=== PATIENT | male | born 1940 | race Caucasian/White ===

== ENCOUNTER → 2016-11-21 | Outpatient (CLI) | payer OTHER ==
[~2016-11-21] VITALS: Ht 180.3 cm; Wt 100.9 kg
[~2016-11-21] MED LIST: ACYCLOVIR 400400 MG PO; ALLERGY10 M1 PO; COZAAR 25 MG TA25 M1 PO; IBUPROFEN 200200 M1 PO; LEVOTHYROXINE137 MCG PO; MEDROL DOSPAK21 TA1 PO; PERCOCET PO; STOOL SOFT50 MG/5 ML PO; VITAMIN D3400 UNIT PO; VITAMINC500 PO; ZOCOR20 MG PO; ZYLOPRIM300 MG PO
--- NOTE | ~2016-11-21 | HPC ---
[facility] [place] [address] PAIN MANAGEMENT CONSULTATION Name: CLIFFORD OTT Room #: REG Aliza Marmolejo#: [id number] Admission: 11/21/16 Attend Phys: Deni Guillen DO Discharge: Date of : 42 Report #: [id number] THIS REPORT FOR: //name// CC: Derrek Guillen HISTORY OF PRESENT ILLNESS: The patient is a 76-year-old gentleman seen in consultation at the request of Dr. Diego Spears for evaluation of pain, acute onset right low back. The patient notes pain started when he was starting his chainsaw and doing some wood cutting work. This was 4-6 weeks ago. Pain became problematic to the point that he sought followup care at the ER. He had tried chiropractic manipulation, muscle relaxants [id number] anti-inflammatory medications. In the ER, he was given a Medrol Dosepak and a short course of Percocet. He notes pain continues in the right low back, radiating to the right hip. Denies specific paresthesia, lower extremity weakness, bowel or bladder continence changes or saddle anesthesia. He does rate pain quite high, anywhere from 8-10 on a VAS; sharp, stabbing periodic pain exacerbated with any and all movement. He does get some relief with ice and being recumbent. REVIEW OF SYSTEMS: Complete review of systems attached to chart, was gone over with the patient. He is . He does not smoke or drink alcohol to excess. History of hypertension, treated with losartan; levothyroxine for hypothyroidism; dyslipidemia for which he takes simvastatin. He does have a history of multiple myeloma. He takes acyclovir and Velcade injections biweekly. Allopurinol for gout. The patient does note that he bruises easily and does have some difficulty with clotting secondary to low platelet counts. 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 He has been off work the past 2 weeks. Pain impact score averages about 6.2. PHYSICAL EXAMINATION: VITAL SIGNS: Reveals a 5 feet 11 inches, 223 pounds gentleman in moderate distress. BMI is 31 kilograms per meter squared. Blood pressure is 122/81, pulse is 81, respirations 16. NEUROLOGIC: Cranial nerves 2-12 are grossly intact. HEENT: Pupils equal, reactive to light and accommodation. Extraocular muscles are intact. NECK: Cervical range of motion is full. Thyroid is modestly enlarged. HEART: Regular and rhythmical without murmur. LUNGS: Clear to auscultation. EXTREMITIES: Upper extremity strength is generally preserved. Rises from chair using armrest, moderately antalgic gait. Lumbar flexion is good to 90 degrees. He is not able to walk on his left toe. He does have discrete tenderness over the right low back. Patellar and Achilles reflexes are generally symmetric. Straight leg raise is negative. Lower extremity strength is about 4/[address] [address] PAIN MANAGEMENT CONSULTATION Name: TRUCLIFFORD Francheska Room #: REG BRITTANY Marmolejo#: [id number] Admission: 11/21/16 Attend Phys: Deni Guillen, Discharge: Date of : 42 Report #: [id number] muscle groups tested. Positive Hector test on the left with pain exacerbated with rotation and side bending. DIAGNOSTIC STUDIES: There are no diagnostic studies available for evaluation at this time. ASSESSMENT: Symptomatic lumbosacral spondylosis, right sacroiliac mediated pain in the patient with history of multiple myelosis. RECOMMENDATIONS: 1. Right SI joint injection under fluoroscopy today. 2. Core strengthening exercises given to the patient. 3. Follow up in 3 weeks for reevaluation. If not significant relief, we will need an MRI of the lumbar spine to rule out any other treatable pathology. Thank you for allowing me to participate in the patient's care. I will keep you abreast of his progress. PROCEDURE NOTE: Right SI joint injection under fluoroscopy. PROCEDURE: After written informed consent was obtained, the patient was taken to the fluoroscopy suite and placed in prone position. After sterile prep and drape, skin wheal was raised. A 22-gauge spinal needle was inserted into the inferior aspect of the right SI joint. Negative aspiration was accomplished. 1 mL of Omnipaque was injected, which showed spread within the joints. This was followed with 40 mg triamcinolone plus 1 mL of 0.5% preservative-free bupivacaine. Needle was removed. The area was cleansed, Band-Aids applied. The patient monitored for an appropriate period of time, discharged in good and stable. By: 1214 1615 Deni Guillen DO /nt
[2016-11-21 09:40] VITALS: BP 122/81
== END | disposition home or self-care (01) ==
LOC: PAIN 07:18
DX: M53.3 Sacrococcygeal disorders, not elsewhere classified (principal); M47.817 Spondylosis without myelopathy or radiculopathy, lumbosacral region; D72.828 Other elevated white blood cell count; Z68.31 Body mass index [BMI] 31.0-31.9, adult; I10 Essential (primary) hypertension; E03.9 Hypothyroidism, unspecified; E78.5 Hyperlipidemia, unspecified; Z79.899 Other long term (current) drug therapy

== ENCOUNTER → 2016-12-11 | Outpatient (CLI) | payer OTHER ==
[~2016-12-11] VITALS: Ht 180.3 cm; Wt 94.3 kg
[~2016-12-11] MED LIST changes: +NAPROXEN375 MG PO; +NORCO 5-325 TA1 EACH PO
--- NOTE | ~2016-12-11 | HPC ---
[facility] [address] [place] [address] PAIN MANAGEMENT CONSULTATION Name: CLIFFORD OTT Room #: [facility] [id number] Admission: 12/11/16 Attend Phys: Deni Guillen DO Discharge: Date of : 42 Report #: [id number] THIS REPORT FOR: //name// CC: Derrek Guillen HISTORY OF PRESENT ILLNESS: The patient is a 76-year-old gentleman seen in consultation on 11/21/2016 for axial back and low back pain. Diagnosed with symptomatic lumbosacral spondylosis, right SI mediated pain, history of multiple myelosis. He was given a right SI joint injection at that time, referred to physical therapy. He returns to pain clinic today noting that the right SI joint injection did afford good relief, 75% relief for only about 3 days, pain has recurred. He did not start physical therapy. He is struggling little bit with constipation chronically. Notes pain remains problematic. DIAGNOSTIC STUDIES: Ordered by his oncologist, pelvis MRI notes prostatomegaly and lumbar spondylosis. Bone osseous study notes thoracic spine slight scoliosis, lumbar spine shows hypertrophic degenerative processes with facet degenerative changes throughout the lumbar spine. There is some arthritis in the right knee and left knee as well. The patient rates his pain at 10 on VAS, primarily across the low back. Lower extremity strength is symmetric. Straight leg raise is negative. Positive LACEY test bilaterally along with some pain in the L4-L5 and L5-S1 facets exacerbated with rotation and side bending. ASSESSMENT: Lumbosacral spondylosis, lumbar spondylosis, bilateral sacroiliac joint dysfunction in a gentleman with multiple myeloma. RECOMMENDATION: 1. Again, I have taken the liberty of writing for referral to physical therapy for core strengthening. 2. SI joint injection under fluoroscopy today. 3. Hydrocodone 5/325 one tablet 2-3 times a day, limit 75 tablets for 30 days for acute pain; again encouraged MiraLax in the morning, Colace at night, copious fluids during the day. Naprosyn 375 b.i.d. Discontinue byoj-rvt-anncuzs ibuprofen. 4. Follow up in 4 weeks for reevaluation, consideration for L4-L5 and L5-S1 facet joint injections if indicated clinically. ASSESSMENT: Symptomatic bilateral sacroiliac joint dysfunction by clinical exam. PROCEDURE: Bilateral SI joint injections under fluoroscopy. PROCEDURE NOTE: After written and informed consent was obtained including risk [address] [address] PAIN MANAGEMENT CONSULTATION Name: CLIFFORD OTT [id number] Admission: 12/11/16 Attend Phys: Dein Guillen DO Discharge: Date of : 42 Report #: [id number] of infection, nerve trauma, increased pain and weakness, the patient wishes to proceed. The patient was taken to the fluoroscopy suite, placed in the prone position. The sacroiliac joint was visualized using the C-arm, turned in an oblique fashion to align the joint. The skin overlying the area was cleansed with ChloraPrep. Skin wheal with Xylocaine was raised. A 22 gauge spinal needle was inserted into the inferior aspect of the joint. A low volume extension tubing was then attached to the needle after the stylet was removed. Negative aspiration was accomplished. A 1 mL of Omnipaque was injected which showed spread within the SI joint. 40 mg triamcinolone plus 2 mL of 0.5% preservative-free bupivacaine was injected into the joint. Needle was removed. Attention was then turned to the contralateral joint which was treated in an identical fashion. After both needles were removed the prep was washed off. Two Band-Aids were applied over the puncture sites. The patient was allowed to ambulate to the recovery room, monitored for an appropriate period of time, discharged in good and stable condition. <ELECTRONICALLY SIGNED> By: Deni Guillen DO 12/12/16 0654 [id number] Deni Guillen DO /nt
[2016-12-11 11:09] VITALS: BP 128/92
== END | disposition home or self-care (01) ==
LOC: PAIN 07:45
DX: M53.3 Sacrococcygeal disorders, not elsewhere classified (principal); M47.816 Spondylosis without myelopathy or radiculopathy, lumbar region; M47.817 Spondylosis without myelopathy or radiculopathy, lumbosacral region; C90.00 Multiple myeloma not having achieved remission

== ENCOUNTER 2017-01-12 06:51 | Inpatient (IN) | payer OTHER ==
[~2017-01-12] VITALS: Ht 177.8 cm; Wt 81.6 kg
--- NOTE | ~2017-01-12 | HC ---
[facility] [place] [address] CONSULTATION Name: CLIFFORD OTT Room #: 448-P [facility] IN M.R.#: [id number] Admission: 01/12/17 Attend Phys: Deni Guillen DO Discharge: Date of : 42 Report #: [id number] THIS REPORT FOR: //name// CC: Derrek Guillen TYPE OF REPORT: Infectious diseases consultation. REASON FOR CONSULTATION: I was asked to evaluate concerning suspected diskitis and vertebral osteomyelitis. HISTORY OF PRESENT ILLNESS: The patient is a 76-year old with a history of multiple myeloma in the past 3 years. He has undergone stem cell transplant with maintenance Velcade biweekly. About 6 weeks ago after working with a chainsaw developed low back pain. This has progressed. He reports occasional chill or sweats but no documented fever. There was concern about myeloma, but bone scan was clear. MRI scan, however, showed evidence of fluid and L1-L2 disk space with endplate destruction and some extension bilaterally into the psoas. Had very small epidural fluid collection as well. He underwent biopsy today. He was given a dose of vancomycin post-procedure. The patient has had no cough, sputum, nausea, vomiting or diarrhea. He does have a history of prostate cancer and has a neurogenic bladder and requires self catheterization twice a day, which is a longstanding issue. No recent urinary tract infections. The patient does not recall the last antibiotic course he has been on. No other skin or lymph issues. Neurologic has been unremarkable other than noted above. ALLERGIES: None known. MEDICATIONS: As noted on his MAR including acyclovir, docusate sodium, vitamin D, Synthroid, losartan, allopurinol, simvastatin and Velcade. PAST MEDICAL HISTORY: Tonsillectomy, thyroid surgery, tumor in his right leg in the early 1950s, multiple myeloma, prostate cancer status post radiation, self catheterization program, BPH, thyroidectomy and hyperlipidemia. FAMILY HISTORY: Cancer and hypertension. SOCIAL HISTORY: Nonsmoker. No significant alcohol intake. PHYSICAL EXAMINATION: VITAL SIGNS: He is afebrile, hemodynamically stable. GENERAL: He is alert and cooperative and pleasant, in no acute distress. HEENT: Unremarkable. NECK: Supple. [facility] [address] [place] [address] CONSULTATION Name: CLIFFORD OTT Room #: 448-P [facility] IN [facility].#: [id number] Admission: 01/12/17 Attend Phys: Deni Guillen DO Discharge: Date of : 42 Report #: [id number] LUNGS: Clear. HEART: Regular. ABDOMEN: Soft and nontender. MUSCULOSKELETAL: He had a back lesion with some swelling in the upper lumbar region. This was exquisitely tender in this area. Strength in the lower extremities was unremarkable. LABORATORY STUDIES: Hemoglobin 8.8; WBC 2.5 with 85% segs; 1% band and platelet count was 52,000. Sodium 136, potassium 4.0, bicarbonate 27 and creatinine 0.9 and alk phos 117. Blood cultures and biopsy cultures are pending. RADIOLOGICAL DATA: MRI scan as noted above. IMPRESSION: A 76-year old with ongoing multiple myeloma, on maintenance treatment and presents now with a fluid collection, L1-L2 disk space with suspecting vertebral osteomyelitis. There was diffuse increased marrow signal throughout the vertebral bodies. There was extension of this process into the adjacent psoas muscles with a small epidural component. This would most likely be bacterial in origin due to the fact that the patient does self catheterization program, which predisposes him to contamination of the bladder and potentially upper urinary tract. He is immunosuppressed. He has thrombocytopenia. Duration of which is not yet clear whether this is a new finding or not. RECOMMENDATION: Blood cultures and aspirate culture as well as pathologic specimen evaluation. We will hold his antibiotics until we have a more clear evidence of the type of infection that we are dealing with. If no growth from this aspiration, we would pursue further biopsy. If he should become unstable, we will then go with empiric broad-spectrum coverage. Duration of this antibiotic treatment will be prolonged. This was discussed with the patient at the bedside. <ELECTRONICALLY SIGNED> By: Matthew Adam MD 01/13/17 1513 [id number] Matthew Adam MD /nt
--- NOTE | ~2017-01-12 | HPC ---
[facility] [place] [address] PAIN MANAGEMENT CONSULTATION Name: CLIFFORD OTT Room #: 448-P [facility] IN ..#: [id number] Admission: 01/12/17 Attend Phys: Deni Guillen DO Discharge: 01/15/17 Date of : 42 Report #: [id number] THIS REPORT FOR: //name// CC: Derrek Guillen DATE OF SERVICE: 01/12/2017 The patient is a 76-year-old gentleman, prior seen in the pain clinic 12/11/2016. The patient was diagnosed with axial back pain, component of lumbosacral spondylosis. The patient was given bilateral SI joint injections 12/11/2016 with transient improvement of pain. He returns to pain clinic today complaining of significant axial back pain. Notes his pain is a 10 on VAS. Pain is in the mid back, exacerbated with standing and moving. He notes no relief of the SI joint injections that he can recall. Examination today does show pain a little different more in the lumbar area. Pain seems to be exacerbated with standing, walking and bending. He did present to the ER on 01/05/2017 complaining of right hip pain. Pain today again is primarily mid back. PHYSICAL EXAMINATION: Shows a 76-year-old gentleman, BMI is 25.7 kilograms per meter squared. Vital signs show blood pressure 102/71, pulse 94, respirations are 14, room air oxygen saturation 100%. Again, BMI is 25.7 kilograms per meter squared. He has a very difficulty with any and all movement. Very significant midline back pain over the posterior spinous processes in the lumbar spine. I did order an x-ray of the lumbar spine, which did note age indeterminate compression fracture at the superior endplate of L2 With tenderness in this area we referred to MRI for consideration for interventional therapy. He was seen by Dr. Tevin Naidu, the MRI noted bulging disk at multiple levels. Small left herniated disk at L5-S1 with bilateral neural foraminal narrowing, more significant was fluid is in the L1-L2 disk space with destruction of superior endplate invasion of the inferior to the superior endplate of L2 and the inferior endplate of L1. A very small epidural abscess that was present at this level. He has some extension of the psoas muscle. After discussion with Dr. Naidu, he moved forward with disk space, aspiration. I suggested that he speak to the hospitalist to have the patient admitted for pain control and seen by Infectious Disease. The patient was seen in the clinic for approximately 25 minutes. Ultimately, both before and after the x-rays before ultimately being referred back to [place]ology [place] [address] PAIN MANAGEMENT CONSULTATION Name: TRUCLIFFORD Francheska Room #: 448-P [facility] IN M.R.#: [id number] Admission: 01/12/17 Attend Phys: Deni Guillen DO Discharge: 01/15/17 Date of : 42 Report #: [id number] Uses naproxen and hydrocodone at home, I did provide him a prescription for 75 hydrocodone 12/11/2016. Depending on outcome of aspirate from the apparent diskitis and acute pain management by the hospitalist. We will consider renewing p.o. medications on an as needed basis. Thanks for allowing me to participate in the patient's care. He was discharged from our care back to Radiology for an MRI after greater than 25 minutes spent [id number] contact and consultation. <ELECTRONICALLY SIGNED> By: Deni Guillen DO 01/19/17 0759 [id number] [id number] Deni Guillen DO /nt
--- NOTE | ~2017-01-12 | HC ---
[facility] [address] CONSULTATION Name: CLIFFORD OTT Room #: 448-P [facility] IN ..#: [id number] Admission: 01/12/17 Attend Phys: Deni Guillen DO Discharge: 01/15/17 Date of : 42 Report #: [id number] THIS REPORT FOR: //name// CC: Derrek Guillen DATE OF SERVICE: 01/14/2017 HISTORY OF PRESENT ILLNESS: The patient is a 76-year-old white male who admitted from the Pain Clinic with L1-L2 diskitis. The patient has a history of multiple myeloma for the past 3 years and has undergone a stem cell transplant with maintenance Velcade biweekly. Approximately 6 weeks ago, he was working with a chainsaw and developed some low back pain. The pain has progressed. MRI showed evidence of fluid and L1-L2 disk space involvement with endplate destruction and some extension bilaterally into the psoas. He has a very small epidural fluid collection as well. He has undergone biopsy. He has considerable pain with any movements. He has been receiving IV fentanyl push. We are seeing him in rehabilitation medicine consultation. PAST MEDICAL HISTORY: As noted above. He has a history of a tumor in his right leg in the 1950s, the multiple myeloma as noted above, history of prostate cancer for which he underwent radiation approximately 5 years ago and has problems with inadequate emptying and caths himself typically twice a day, although he does have some intermittent voiding in between. He has a history of BPH, thyroidectomy, hyperlipidemia. FAMILY HISTORY: Includes cancer and hypertension. ALLERGIES: No known drug allergies. SOCIAL HISTORY: Lives with his . They live in a house. He can go in on the ground level and stay in the family room where he sleeps in the recliner and there is a bathroom on that level. He needs to go up 6 steps to get to the next level, however, where there is a bedroom. works part-time. The patient is retired. REVIEW OF SYSTEMS: As noted above. He self caths premorbidly. No complaints of chest pain, shortness of breath, abdominal discomfort. Has considerable pain in his back with any limited movement. PHYSICAL EXAMINATION: GENERAL: A 76-year-old white male in no obvious distress. VITAL SIGNS: Last recorded temperature 98, pulse 82, respirations 19, blood pressure 118/61. HEENT: Facies are symmetric. [address] [address] CONSULTATION Name: CLIFFORD OTT Room #: 448-P [facility] IN ..#: [id number] Admission: 01/12/17 Attend Phys: Deni Guillen DO Discharge: 01/15/17 Date of : 42 Report #: [id number] NEUROLOGIC: Functional range of motion of both upper extremities with good strength, grade 5-/5. His lower extremities, he has some discomfort with bilateral hip flexion which was difficult to grade. It is at least a grade 3+/5, but again was difficult to grade with the discomfort. Bilateral knee extension is a grade 4- knee flexion is 4-, ankle dorsiflexion is a 4-4+ bilaterally. Again, some of the proximal muscle movement was a little bit limited and testing due to discomfort. There was no clonus. DTRs were decreased. Sensory examination appeared intact to simultaneous stimulation both lower extremities as well as over his scrotum. Sensation appeared slightly decreased right large toe to proprioception. He has been able to roll supine with contact guard assistance. He has pain with any attempts with limited sitting. ASSESSMENT: A 76-year-old white male with the following problem list: 1. 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 2. History of multiple myeloma with premorbid stem cell transplant. 3. Premorbid urinary retention for which he intermittently self-catheterized post-radiation for prostate cancer. 4. Pain issues, currently on IV fentanyl as well as some oral hydrocodone. 5. Constipation. 6. Deep venous thrombosis prophylaxis, Lovenox. Sequential compression devices. PLAN: Discussed with Dr. Adam in Infectious Disease as well as case management. Would recommend Neurosurgery involvement to help with transition from immobilization to activity post-bracing. My impression is that he would need a rigid TLSO brace and that his activity, even in the brace should include ambulation only if he has neither pain nor radiographic signs of instability. In my impression Neurosurgery should be involved as far as helping to monitor this increase in activity level once he is fitted with the brace. Rather than order a TLSO at this point in time, I discussed transferring the patient to another facility with Neurosurgery involvement to further monitor and assist in this regard. In the meantime, I have put in some limited therapy orders in bed, working on some gentle lower body strengthening, log rolling, but no sitting at this point in time and no further activity until he is potentially transferred and fitted with a brace and supervised as per Neurosurgery. Thank you for asking us to assist in this patient's care. <ELECTRONICALLY SIGNED> By: Anson Briceño MD 01/16/17 1108 1404 [id number] Anson Briceño MD /PMT
[~2017-01-12 06:51] MED LIST changes: +HYDROCODONE-AP1 EAC6 PO; +SENNA8.6 MG PO
[2017-01-12 08:59] VITALS: BP 102/71
[2017-01-12 13:46] VITALS: BP 113/69
[2017-01-12 15:38] VITALS: BP 123/77
[2017-01-12 16:56] LABS: HEMATOCRIT 25.9 % (42.0-52.0); HEMOGLOBIN 8.8 gm/dL (14.0-18.0); MANUAL DIFF YES; MCH 33.7 pg (26.0-34.0); MCV 99.1 fL (80.0-100.0); PLATELET COUNT 52 thou/uL (150-400); RBC 2.61 mil/uL (4.50-6.00); RDW 16.2 % (10.5-14.5); WBC 2.5 thou/uL (4.0-11.0)
[2017-01-12 17:09] LABS: ALBUMIN 2.7 g/dL (3.4-5.0); CALCIUM 10.6 mg/dL (8.5-10.1); CREATININE 0.9 mg/dL (0.7-1.3); MAGNESIUM 1.5 mg/dL (1.8-2.4); TOTAL BILIRUBIN 0.6 mg/dL (<0.1-1.0); TOTAL PROTEIN 7.4 g/dL (6.4-8.2)
[2017-01-12 17:35] LABS: ABSOLUTE NEUTROPHILS 2.2 thou/uL (1.4-8.2); TOTAL CELL COUNT 100
[2017-01-13 04:00] VITALS: BP 117/64
[2017-01-13 07:49] VITALS: BP 110/64
[2017-01-13 16:05] VITALS: BP 98/61
[2017-01-13 18:21] LABS: URINE BILIRUBIN NEGATIVE (Negative); URINE BLOOD 1+ (Negative); URINE COLOR YELLOW; URINE GLUCOSE-RANDOM* NEGATIVE (Negative); URINE KETONES NEGATIVE (Negative); URINE PROTEIN (DIPSTICK) NEGATIVE (Negative); URINE UROBILINOGEN 0.2 E.U./dl (0.2-1.0)
[2017-01-13 18:24] LABS: URINE LEUKOCYTES-REFLEX 1+ (Negative)
[2017-01-13 18:33] LABS: CASTS None Seen /LPF (None Seen); CRYSTALS None Seen /LPF (None Seen); SQUAMOUS 0-3 Few /LPF (0-3); URINE RBC 0-2 Rare /HPF (0-2); URINE WBC-REFLEX 0-5 Rare /HPF (0-5)
[2017-01-13 20:42] VITALS: BP 92/57
[2017-01-14 05:13] VITALS: BP 99/66
[2017-01-14 07:45] VITALS: BP 118/61
[2017-01-14 11:33] LABS: HEMOGLOBIN 7.7 gm/dL (14.0-18.0); MCV 99.4 fL (80.0-100.0); PLATELET COUNT 46 thou/uL (150-400); WBC 2.4 thou/uL (4.0-11.0)
[2017-01-14 11:35] LABS: HEMATOCRIT 22.8 % (42.0-52.0); MANUAL DIFF YES; MCH 33.5 pg (26.0-34.0); MCHC 33.7 g/dL (28.0-37.0); RBC 2.29 mil/uL (4.50-6.00); RDW 16.1 % (10.5-14.5)
[2017-01-14 11:44] LABS: ALBUMIN 2.4 g/dL (3.4-5.0); CALCIUM 10.2 mg/dL (8.5-10.1); CREATININE 0.9 mg/dL (0.7-1.3); TOTAL BILIRUBIN 0.6 mg/dL (<0.1-1.0); TOTAL PROTEIN 6.8 g/dL (6.4-8.2)
[2017-01-14 12:00] LABS: ABSOLUTE NEUTROPHILS 2.1 thou/uL (1.4-8.2); TOTAL CELL COUNT 100
[2017-01-14 12:01] LABS: ANISOCYTOSIS 1+; OVALOCYTES FEW
[2017-01-14 15:25] VITALS: BP 114/67
[2017-01-14 20:30] VITALS: BP 108/61
[2017-01-15 02:58] VITALS: BP 122/57
[2017-01-15 05:08] VITALS: BP 126/66
[2017-01-15 09:20] VITALS: BP 122/77
[2017-01-15] MEDS ORDERED: PROTONIX40 M1 PO (13:13)
== END 2017-01-15 14:30 | disposition short-term general hospital (02) | DRG 539 ==
LOC: PAIN → 4S 15:31
PROVIDERS: Internal Medicine Hematology & Oncology; Nurse Practitioner
PROC: 009Y3ZX Drainage of Lumbar Spinal Cord, Percutaneous Approach, Diagnostic (ICD-10-PCS; principal; 2017-01-12)
PROC: 05HB33Z Insertion of Infusion Device into Right Basilic Vein, Percutaneous Approach (ICD-10-PCS; 2017-01-13)
DX: M46.26 Osteomyelitis of vertebra, lumbar region (principal); E43 Unspecified severe protein-calorie malnutrition; D61.818 Other pancytopenia; C90.00 Multiple myeloma not having achieved remission; L02.212 Cutaneous abscess of back [any part, except buttock and flank]; Z94.84 Stem cells transplant status; M46.46 Discitis, unspecified, lumbar region; N40.0 Benign prostatic hyperplasia without lower urinary tract symptoms; E89.0 Postprocedural hypothyroidism; E78.5 Hyperlipidemia, unspecified; B95.1 Streptococcus, group B, as the cause of diseases classified elsewhere; K59.00 Constipation, unspecified; D64.9 Anemia, unspecified; D72.819 Decreased white blood cell count, unspecified; M47.9 Spondylosis, unspecified; Z90.49 Acquired absence of other specified parts of digestive tract; Z85.46 Personal history of malignant neoplasm of prostate; Z82.49 Family history of ischemic heart disease and other diseases of the circulatory system; Z80.9 Family history of malignant neoplasm, unspecified; Z68.25 Body mass index [BMI] 25.0-25.9, adult
CPT/HCPCS: 10102; 27000